=== PATIENT | female | born 2000 | race Caucasian/White ===

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

== ENCOUNTER 2022-04-15 11:20 | Emergency (ER) | payer MEDICAID ==
[~2022-04-15] VITALS: Ht 165.1 cm; Wt 73.5 kg
[2022-04-15 11:24] VITALS: BP 123/64
--- NOTE | 2022-04-15 11:30 | NUR ---
C/O COUGH,NASAL CONGESTION, NV, X1 WEEK. PER PT SHE ONLY VOMITS AT NIGHT [facility] PMH: DENIES
[2022-04-15] MEDS ORDERED: ALBU0.0912 IH (12:51)
[2022-04-15] MEDS ORDERED: BENZ150C2 PO (12:51)
--- NOTE | 2022-04-15 13:30 | NUR ---
Patient discharged with v/s stable. Written and verbal after care instructions ABOUT COUGH, SORE THROAT given and explained. Patient alert, oriented and verbalized understanding of instructions. Ambulatory with steady gait. All questions addressed prior to discharge. ID band removed. Patient advised to follow up with PMD. Rx of PROVENTIL HFA AND BENZONATATE given. Patient educated on indication of medication including possible reaction and side effects. Opportunity to ask questions provided and answered.
== END 2022-04-15 13:30 | disposition home or self-care (01) ==
LOC: MED 11:20
DX: J06.9 Acute upper respiratory infection, unspecified (principal); Z20.822 Contact with and (suspected) exposure to COVID-19; Z79.899 Other long term (current) drug therapy
CPT/HCPCS: 99283